=== PATIENT | female | born 1940 | race Caucasian/White ===

== ENCOUNTER → 2016-10-20 | Outpatient (CLI) | payer OTHER ==
[~2016-10-20] MED LIST: CIPRO PO; LEVOTHYROXINE75 MCG PO; LISINOPRIL20 MG PO; PERCOCET 5-3251 TAB PO; PHENERGAN25 MG PO
--- NOTE | ~2016-10-20 | PFT ---
[id number] [facility]. [place], [place] [address] [id number] O MR#: [id number] NAME: DAY ESTEVEZ ROOM: SEX: F STUDY DATE/TIME: 10/27/2016 : 1940 AGE: 76 STUDY DESCRIPTION: Attending Physician: Adriane Hagen A.P.R.N. Referring Physician: Adriane Hagen A.P.R.N. Primary Care Physician: Adriane Hagen A.P.R.N. PULMONARY DIAGNOSTIC REPORT EXAM Pulmonary function test. FINDINGS Spirometry reveals a mild obstructive defect. There is a significant response to bronchodilators yielding a FEV1 of 1.77 L, 92% of predicted. Flow volume loop suggests significant variability which may affect results. Total lung capacity was normal. Diffusion capacity is normal. Dictated by... vYonne Rowell/vaishali TD: 10/27/2016 13:21 JOB #: [id number] PULMONARY DIAGNOSTIC REPORT Page 1 of 1
== END | disposition home or self-care (01) ==
LOC: CRC 10:29
DX: R06.02 Shortness of breath (principal); R06.2 Wheezing; Z72.0 Tobacco use
CPT/HCPCS: 94060; 94726; 94729